=== PATIENT | female | born 1960 | race Caucasian/White ===

== ENCOUNTER 2016-07-10 18:01 | Emergency (ER) | payer OTHER ==
[~2016-07-10] VITALS: Ht 160 cm; Wt 49.9 kg
[~2016-07-10 18:01] MED LIST: ASPI-231 GT; GABA-339 GT; MULTCAP45 GT
[2016-07-10] MEDS ORDERED: ONDANSETRON HCL 4 MG/2 ML VIAL IV ONE (20:15)
[2016-07-10] MEDS ORDERED: HYDROmorphone HCL 2 MG/ML VL IV ONE (20:15)
[2016-07-10 20:41] LABS: Basophils # (auto) 0 uL; Basophils % (auto) 0.3 % (0.0-2.0); Eosinophils # (auto) 0.2 uL; Eosinophils % (auto) 1.9 % (0.0-7.0); Hematocrit 46.1 % (36.0-46.0); Hemoglobin 15.2 g/dL (12.2-16.2); Lymphocytes % (auto) 19.3 % (10.0-50.0); Mean Corpuscular Hemoglobin 30.2 pg (28.0-32.0); Mean Corpuscular Volume 91.4 fL (80.0-100.0); Mean Platelet Volume 9.6 fL (7.4-10.4); Monocytes # (auto) 0.7 uL; Monocytes % (auto) 6.7 % (0.0-12.0); Neutrophils # (auto) 7.3 uL; Neutrophils % (auto) 71.8 % (37.0-80.0); Platelet Count (auto) 334 10^3/uL (140-450); White Blood Cell 10.2 10^3/uL (4.4-10.8)
[2016-07-10 20:54] LABS: Albumin 3.3 g/dL (3.4-5.0); BUN/Creatinine Ratio 33.3; Bilirubin, Total 0.2 mg/dL (0.2-1.0); Calcium 9.2 mg/dL (8.5-10.1); INR 0.95 (0.9-1.15); Partial Thromboplastin Time 28.4 sec (22.64-33.71); Potassium 4.3 mmol/L (3.5-5.1); Prothrombin Time 10.3 sec (9.37-12.3); Total Protein 6.9 g/dL (6.4-8.2)
[2016-07-10 20:59] LABS: Magnesium 2.9 mg/dL (1.6-2.6)
[2016-07-10 21:53] LABS: Urine Bilirubin Negative (Negative); Urine Color Yellow (Yellow); Urine Glucose Normal (Normal); Urine Ketone Negative (Negative); Urine Nitrite Negative (Negative); Urine RBC 11 /hpf (0 - 4); Urine Squamous Epithelial Cell FEW /hpf (<5); Urine Urobilinogen Normal (Negative); Urine pH 7.5 (5.0-8.0)
[2016-07-10 21:58] LABS: Urine Blood 1+ /uL (Negative)
[2016-07-11] MEDS ORDERED: HYDROmorphone HCL 2 MG/ML VL IV ONE (00:15)
[2016-07-11] MEDS ORDERED: ONDANSETRON HCL 4 MG/2 ML VIAL IV ONE (00:15)
[2016-07-11] MEDS ORDERED: CLINDAMYCIN 600MG IV 50 ML IV ONE (00:45)
[2016-07-11 01:39] VITALS: BP 145/72
== END 2016-07-11 02:23 | disposition home or self-care (01) ==
LOC: EDBD 18:01 → ER 18:08
DX: N39.0 Urinary tract infection, site not specified (principal); J39.2 Other diseases of pharynx; M54.2 Cervicalgia; J44.9 Chronic obstructive pulmonary disease, unspecified; I10 Essential (primary) hypertension; I25.2 Old myocardial infarction; Z86.73 Personal history of transient ischemic attack (TIA), and cerebral infarction without residual deficits; Z88.1 Allergy status to other antibiotic agents; Z88.6 Allergy status to analgesic agent; Z88.0 Allergy status to penicillin
CPT/HCPCS: 36415; 51702; 70450; 70490; 71010; 80053; 81001; 83735; 84484; 85025; 85610; 85730; 93005; 96365; 96375; 96376; 99285; J1170; J2405; J3490

== ENCOUNTER 2017-02-27 16:05 | Inpatient (IN) | payer OTHER, MEDICAID ==
[~2017-02-27] VITALS: Ht 154.9 cm; Wt 40.1 kg
[2017-02-27] MEDS ORDERED: SODIUM CHLORIDE 0.9% 1,000 ML IV ONE (16:26)
[2017-02-27 17:11] LABS: Basophils # (auto) 0.1 uL; Basophils % (auto) 0.5 % (0.0-2.0); Eosinophils # (auto) 0 uL; Hemoglobin 11.9 g/dL (12.2-16.2); Lymphocytes # (auto) 0.8 uL; Mean Corpuscular Volume 102.6 fL (80.0-100.0); Monocytes # (auto) 0.5 uL
[2017-02-27 17:13] LABS: Eosinophils % (auto) 0.3 % (0.0-7.0); Hematocrit 36.7 % (36.0-46.0); Mean Corpuscular Hemoglobin 33.3 pg (28.0-32.0); Mean Corpuscular Hgb Conc. 32.5 g/dL (32.0-36.0); Monocytes % (auto) 4.1 % (0.0-12.0); Neutrophils # (auto) 10.5 uL; Neutrophils % (auto) 88.1 % (37.0-80.0); Platelet Count (auto) 287 10^3/uL (140-450); Red Blood Cells 3.58 10^6/uL (4.0-5.20); Red Cell Distribution Width 15.3 % (11.8-14.3)
[2017-02-27 17:25] LABS: Magnesium 2.5 mg/dL (1.6-2.6)
[2017-02-27 17:30] LABS: Albumin 3.5 g/dL (3.4-5.0); BUN/Creatinine Ratio 21.1; Bilirubin, Total 0.3 mg/dL (0.2-1.0); Calcium 8.7 mg/dL (8.5-10.1); Potassium 4.3 mmol/L (3.5-5.1); Total Protein 6.6 g/dL (6.4-8.2)
[2017-02-27] MEDS ORDERED: NALBUPHINE HCL 10 MG/1ml INJECTION IV ONE (20:45)
[2017-02-27 20:57] LABS: Urine Bacteria NONE SEEN /hpf (None Seen); Urine Blood 2+ /uL (Negative); Urine Budding Yeast FEW /hpf (None Seen); Urine Hyaline Cast FEW /lpf (0 - 2); Urine Mucus FEW (None Seen); Urine Specific Gravity 1.012 (1.001-1.035); Urine WBC 209 /hpf (0 - 5); Urine WBC Clumps PRESENT /hpf (None Seen)
[2017-02-27] MEDS ORDERED: ONDANSETRON HCL 4 MG/2 ML VIAL IV PRN (21:15)
[2017-02-27] MEDS ORDERED: ACETAMINOPHEN 500 MG TAB PO PRN (21:15)
[2017-02-27] MEDS ORDERED: HYDROcodone-ACET 5/325MG TAB PO PRN (21:15)
[2017-02-27] MEDS ORDERED: diphenhdrAMINE HCL 50 MG/1 ML VL IV ONE (21:30)
[2017-02-27] MEDS ORDERED: IPRATROPIUM BROM 0.5 MG/2.5ML INH SOL NEB ONE (22:30)
[2017-02-27] MEDS ORDERED: LORazepam 2MG/ML-1ML VIAL IV ONE (22:30)
[2017-02-27] MEDS ORDERED: ALBUTEROL SULF 2.5 MG/0.5ML(0.5%) NEB SOLN NEB ONE (22:30)
[2017-02-27] MEDS ORDERED: ALBUTEROL SULF 2.5 MG/0.5ML(0.5%) NEB SOLN NEB PRN (23:30)
[2017-02-27] MEDS ORDERED: HYDROmorphone HCL 2 MG/ML VL IV PRN (23:30)
[2017-02-27] MEDS ORDERED: IPRATROPIUM BROM 0.5 MG/2.5ML INH SOL NEB PRN (23:30)
[2017-02-28] VITALS (7 sets, daily range): BP systolic 125–156; BP diastolic 75–92
[2017-02-28] MEDS: DIAZEPAM 5 MG TAB PO PRN (00:08)
[2017-02-28 07:22] LABS: Basophils # (auto) 0.1 uL; Hemoglobin 10.4 g/dL (12.2-16.2); Mean Corpuscular Hemoglobin 33.5 pg (28.0-32.0); Monocytes # (auto) 1.4 uL
[2017-02-28 07:24] LABS: Basophils % (auto) 0.9 % (0.0-2.0); Eosinophils # (auto) 0.3 uL; Eosinophils % (auto) 2.9 % (0.0-7.0); Hematocrit 32.3 % (36.0-46.0); Lymphocytes # (auto) 1.6 uL; Lymphocytes % (auto) 16.4 % (10.0-50.0); Mean Corpuscular Hgb Conc. 32.2 g/dL (32.0-36.0); Mean Corpuscular Volume 104.1 fL (80.0-100.0); Monocytes % (auto) 14.1 % (0.0-12.0); Neutrophils # (auto) 6.5 uL; Neutrophils % (auto) 65.7 % (37.0-80.0); Platelet Count (auto) 249 10^3/uL (140-450); Red Cell Distribution Width 15.6 % (11.8-14.3); White Blood Cell 9.9 10^3/uL (4.4-10.8)
[2017-02-28 07:46] LABS: BUN/Creatinine Ratio 21.6; Calcium 8.4 mg/dL (8.5-10.1); Potassium 4.4 mmol/L (3.5-5.1)
[2017-02-28] MEDS ORDERED: LEVOFLOXACIN 500MG 100 ML IV SCH (10:00)
[2017-02-28] MEDS: CLOPIDOGREL BISULFATE 75 MG TAB PO SCH (10:40)
[2017-02-28] MEDS ORDERED: PRED1PAK9 PO (10:49)
[2017-02-28] MEDS ORDERED: CLOP75TA28 PO (10:49)
[2017-02-28] MEDS ORDERED: DIAZ-104 PO (10:49)
[2017-02-28] MEDS ORDERED: NORT25CA PO (10:49)
[2017-02-28] MEDS ORDERED: [UNRECOGNIZED DRUG - CODE] OR (10:49)
[2017-02-28] MEDS ORDERED: FENT75DI2 TD (10:49)
[2017-02-28] MEDS ORDERED: HYDR2TAB58 PO (10:50)
[2017-02-28] MEDS ORDERED: ATEN-60 PO (10:52)
[2017-02-28] MEDS ORDERED: Isosource 1.5 Cal 1 Liter GT SCH (12:45)
[2017-02-28] MEDS ORDERED: fentaNYL 100MCG/HR 100 MCG/HR PAT TD SCH ×2 (13:00)
[2017-02-28] MEDS: HYDROmorphone HCL 2 MG TAB PO PRN ×2 (16:08→21:00)
[2017-02-28] MEDS: D5W/SOD CHLO 0.9% 1,000 ML IV SCH (17:00)
[2017-02-28] MEDS ORDERED: HYDROmorphone HCL 2 MG TAB PO SCH (18:00)
[2017-03-01] MEDS: D5W/SOD CHLO 0.9% 1,000 ML IV SCH ×2 (06:20→19:40)
[2017-03-01 06:22] VITALS: BP 125/83
[2017-03-01 07:13] LABS: Basophils # (auto) 0.1 uL; Eosinophils # (auto) 0.4 uL; Lymphocytes # (auto) 1.3 uL; Mean Corpuscular Hemoglobin 33.9 pg (28.0-32.0); Neutrophils # (auto) 7.7 uL
[2017-03-01] MEDS: HYDROmorphone HCL 2 MG TAB PO PRN ×4 (07:13→22:22)
[2017-03-01 07:14] LABS: Basophils % (auto) 1.1 % (0.0-2.0); Eosinophils % (auto) 3.6 % (0.0-7.0); Hematocrit 32.9 % (36.0-46.0); Hemoglobin 10.8 g/dL (12.2-16.2); Lymphocytes % (auto) 12.5 % (10.0-50.0); Mean Corpuscular Hgb Conc. 32.7 g/dL (32.0-36.0); Monocytes # (auto) 1.1 uL; Monocytes % (auto) 10.7 % (0.0-12.0); Neutrophils % (auto) 72.1 % (37.0-80.0); Platelet Count (auto) 293 10^3/uL (140-450); Red Blood Cells 3.18 10^6/uL (4.0-5.20); White Blood Cell 10.6 10^3/uL (4.4-10.8)
[2017-03-01 07:16] LABS: Mean Corpuscular Volume 103.4 fL (80.0-100.0)
[2017-03-01 07:31] LABS: BUN/Creatinine Ratio 21.4; Calcium 8.1 mg/dL (8.5-10.1); Potassium 3.5 mmol/L (3.5-5.1)
[2017-03-01 08:13] VITALS: BP 149/97
[2017-03-01] MEDS: CLOPIDOGREL BISULFATE 75 MG TAB PO SCH (10:34)
[2017-03-01 12:00] VITALS: BP 132/87
[2017-03-01 17:06] VITALS: BP 156/74
[2017-03-01] MEDS: GABAPENTIN 400 MG CAP PO SCH ×2 (17:59→22:00)
[2017-03-01] MEDS: ASCORBIC ACID 500 MG TAB PO SCH (22:00)
[2017-03-01] MEDS: MULTIPLE VITAMINS W/ MINERALS TAB PO SCH (22:00)
[2017-03-01] MEDS ORDERED: NORTRIPTYLINE HCL 10 MG CAP PO SCH (22:00)
[2017-03-02] MEDS: GABAPENTIN 400 MG CAP PO SCH ×2 (05:02→13:31)
[2017-03-02] MEDS: HYDROmorphone HCL 2 MG TAB PO PRN ×3 (05:02→16:44)
[2017-03-02 05:57] VITALS: BP 161/71
[2017-03-02] MEDS ORDERED: cloNIDine HCL 0.1 MG TAB PO ONE (06:15)
[2017-03-02 06:36] LABS: Urine Bacteria NONE SEEN /hpf (None Seen); Urine Blood 1+ /uL (Negative); Urine Budding Yeast FEW /hpf (None Seen); Urine Mucus FEW (None Seen); Urine Specific Gravity 1.018 (1.001-1.035); Urine WBC 989 /hpf (0 - 5); Urine WBC Clumps PRESENT /hpf (None Seen)
[2017-03-02 08:00] VITALS: BP 183/113
[2017-03-02] MEDS: D5W/SOD CHLO 0.9% 1,000 ML IV SCH (09:00)
[2017-03-02] MEDS: CLOPIDOGREL BISULFATE 75 MG TAB PO SCH (10:00)
[2017-03-02] MEDS: ASCORBIC ACID 500 MG TAB PO SCH (10:14)
[2017-03-02] MEDS: MULTIPLE VITAMINS W/ MINERALS TAB PO SCH (10:15)
[2017-03-02] MEDS ORDERED: hydrALAZINE HCL 25 MG TAB PO ONE (10:45)
[2017-03-02] MEDS: METOPROLOL TARTRATE 50 MG TAB PO SCH ×2 (10:47→14:00)
[2017-03-02] MEDS: DIAZEPAM 5 MG TAB PO PRN (11:14)
[2017-03-02 12:00] VITALS: BP 118/94
[2017-03-02] MEDS ORDERED: CEPH-37 PO (15:20)
[2017-03-02 16:04] VITALS: BP 147/79
[2017-03-02 16:58] VITALS: BP 129/83
== END 2017-03-02 17:30 | disposition home or self-care (01) | DRG 394 ==
LOC: ER 16:05 → EDBD 16:05 → EDSEX 16:05 → TELE 16:06 → TELE-WESTW 23:15
PROVIDERS: ADMIT Nurse Practitioner Family; ATTEND Nurse Practitioner Acute Care
DX: K94.23 Gastrostomy malfunction (principal); N39.0 Urinary tract infection, site not specified; I67.2 Cerebral atherosclerosis; I69.359 Hemiplegia and hemiparesis following cerebral infarction affecting unspecified side; M79.7 Fibromyalgia; M81.0 Age-related osteoporosis without current pathological fracture; M54.2 Cervicalgia; D64.9 Anemia, unspecified; F17.210 Nicotine dependence, cigarettes, uncomplicated; I10 Essential (primary) hypertension; J44.9 Chronic obstructive pulmonary disease, unspecified; F41.9 Anxiety disorder, unspecified; Z98.49 Cataract extraction status, unspecified eye; Z88.8 Allergy status to other drugs, medicaments and biological substances; Z88.1 Allergy status to other antibiotic agents; Z88.0 Allergy status to penicillin; Z79.899 Other long term (current) drug therapy; Z80.1 Family history of malignant neoplasm of trachea, bronchus and lung; Z82.3 Family history of stroke; Z82.49 Family history of ischemic heart disease and other diseases of the circulatory system; Z85.038 Personal history of other malignant neoplasm of large intestine; Z88.5 Allergy status to narcotic agent; Z79.82 Long term (current) use of aspirin; I25.2 Old myocardial infarction
CPT/HCPCS: 36415; 70450; 71045; 80048; 80053; 81001; 83605; 83735; 83880; 84484; 85025; 87040; 87081; 93005; 94640; 94761; 96374; 96375; J7042